=== PATIENT | female | born 1980 | race Caucasian/White ===

== ENCOUNTER 2016-09-13 09:56 | Day surgery (SDC) | payer MEDICAID ==
[~2016-09-13 09:56] MED LIST: Lactated Ringers 1,000 ML IV SCH
[2016-09-13] MEDS ORDERED: fentaNYL 100 MCG/2 ML SDV ONE (12:06)
[2016-09-13] MEDS ORDERED: Propofol 200 MG/20 ML SDV ONE ×2 (12:06→13:08)
[2016-09-13] MEDS ORDERED: Ondansetron 4 MG/2 ML SDV ONE (12:58)
[2016-09-13 14:49] VITALS: BP 101/60
--- NOTE | 2016-09-16 08:15 | OR ---
PREOPERATIVE DIAGNOSIS: Chronic diarrhea. POSTOPERATIVE DIAGNOSIS: Normal exam of terminal ilium and colon. PROCEDURE PROPOSED: Total flexible colonoscopy. PROCEDURE DONE: Total flexible colonoscopy with multiple random biopsies. INDICATION: This is a 36-year-old female bothered with what appears to be a chronic diarrhea situation. She has been having 1 to 4 loose stools per day for at least a month to 6 weeks. She has been worked up with stool studies and C. diff studies and now referred for colonoscopy. TECHNIQUE: The patient brought to the endoscopy suite, placed in left lower decubitus position. She was sedated with propofol per FRONT OFFICE SPEC. Flexible video colonoscope was then passed transanally and under visualization advanced to the cecum. I was able to intubate the terminal ilium which appeared normal. I did do some biopsies of the terminal ilium. I then brought the scope back into the colon and did multiple random biopsies throughout the ascending, transverse, descending, sigmoid, and rectal colon. There was no evidence of any colitis, polyps, diverticulosis, or any other colonic abnormality and the scope was then withdrawn. The patient tolerated the procedure well. IMPRESSION: Normal exam of terminal ileum and colon, biopsies pending. PLAN: She was recommended to take Metamucil 1 tablespoon daily with juice to help regulate her stools. I will be sending her a letter with the pathology report and may make further recommendations based on the pathology and she should follow up with her PCP as needed. SCM: 09/13/2016 13:34:04 MODL: 09/13/2016 21:23:17 /[id number]
--- NOTE | 2016-09-23 13:17 | LETTER ---
09/20/2016 RE: MARIA ISABEL RODRIGUEZ : 1980 Dear Maria Isabel: The biopsies taken from your small intestine were entirely normal. The biopsies taken from your colon were also entirely normal. This would indicate that you do not have any type of underlying bowel disease or colitis. I am hoping that things are improving for you with the Metamucil, which should help regulate your bowels. If you are still having significant diarrhea, I would recommend adding 1 Imodium pill every morning to your regimen. If that does not seem to help alleviate your problem, I would recommend you contact your family physician and then consider having a referral to a GI specialist in [place]. If you have any further questions regarding this, feel free to call. Respectfully, PRINCESS
== END 2016-09-13 14:40 | disposition home or self-care (01) ==
LOC: VM.SDS 09:56
PROVIDERS: ATTEND Surgery
DX: R19.7 Diarrhea, unspecified (principal); Z88.2 Allergy status to sulfonamides; Z91.040 Latex allergy status
CPT/HCPCS: 45380; J2704; J3010; J7120; J2405

== ENCOUNTER 2017-08-31 11:54 | Emergency (ER) | payer MEDICAID ==
[2017-08-31 12:14] VITALS: BP 130/94
[2017-08-31] MEDS ORDERED: Take Home: Codeine/Promethazine 10-6.25 MG/5 ML Syrup 5 ML, 2 Cup Pack PO ONE (12:20)
--- NOTE | 2017-08-31 12:41 | EDM.PDOC ---
ED HPI GENERAL MEDICAL PROBLEM - General Chief Complaint: General Stated Complaint: COLD Time Seen by Provider: 08/31/17 12:15 Source of Information: Reports: Patient History Limitations: Reports: No Limitations - History of Present Illness INITIAL COMMENTS - FREE TEXT/NARRATIVE: Pt. presents to ER with 4 day history of productive cough, chest congestion, laryngitis, and wheezing. Pt. states that she has a history of mild asthma and is on an albuterol inhaler as needed as well as singulair daily. Pt. states that she felt worse this AM-states that she is wheezy and her cough has become productive. She states that she is not experiencing any fever or chills. Denies any chest pain, weakness, or shortness of breath. She states that the symptoms started like a URI with sore throat, dry cough, and ear fullness and has since progressed. She states that she has not been using her inhaler because she didn't feel wheezy until today. States that she did not get her flu shot this year. Onset: Today Onset Date: 08/31/17 Onset Time: 12:41 Location: Reports: Chest Associated Symptoms: Reports: Cough, cough w sputum, Headaches. Denies: Confusion, Chest Pain, Diaphoresis, Fever/Chills, Loss of Appetite, Malaise, Nausea/Vomiting, Rash, Seizure, Shortness of Breath, Syncope, Weakness Headache Pain Score (Numeric/FACES): 7 - Related Data Allergies Allergy/AdvReac Type Severity Reaction Status Date / Time Latex, Natural Rubber Allergy Rash Verified 08/31/17 12:05 Sulfa (Sulfonamide Allergy Hives Verified 08/31/17 12:05 Antibiotics) sulfamethoxazole Allergy Hives Verified 08/31/17 12:05 Home Meds: Home Meds Albuterol [Proventil HFA] 2 puff INH Q4H PRN 09/20/15 [History] FLUoxetine HCl [Fluoxetine HCl] 80 mg PO DAILY 09/20/15 [History] Pantoprazole Sodium [Protonix] 40 mg PO DAILY 09/20/15 [History] SUMAtriptan Succinate [Imitrex] 100 mg PO ASDIRECTED PRN 09/20/15 [History] busPIRone HCl [busPIRone] 30 mg PO BID 09/20/15 [History] Cetirizine [ZyrTEC] 10 mg PO DAILY 09/10/16 [History] Montelukast [Singulair] 10 mg PO BEDTIME 09/10/16 [History] Candesartan Cilexetil 16 mg PO DAILY 08/31/17 [History] Fluticasone Propionate [Flonase] 1 dose NASBOTH DAILY 08/31/17 [History] Gabapentin [Neurontin] 300 mg PO Q6H PRN 08/31/17 [History] Ondansetron [Zofran] 8 mg PO TID PRN 08/31/17 [History] Past Medical History Other HEENT History: SEASONAL ALLERGIES Respiratory History: Reports: Asthma Gastrointestinal History: Reports: GERD Other Gastrointestinal History: diarrhea Other Musculoskeletal History: dorsal wrist ganglion Neurological History: Reports: Migraines Psychiatric History: Reports: Anxiety, Depression Other Psychiatric History: circadian rhythm sleep disorder, 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 Other Dermatologic History: gets boils at time - Past Surgical History HEENT Surgical History: Reports: Oral Surgery Musculoskeletal Surgical History: Reports: Arthroscopic Procedure Social & Family History - Tobacco Use Smoking Status *Q: Never Smoker - Recreational Drug Use Recreational Drug Use: No ED ROS GENERAL - Review of Systems Review Of Systems: See Below Constitutional: Reports: No Symptoms HEENT: Reports: Rhinitis, Sinus Problem, Throat Pain Respiratory: Reports: Cough, Sputum Cardiovascular: Reports: No Symptoms Endocrine: Reports: No Symptoms GI/Abdominal: Reports: No Symptoms : Reports: No Symptoms Musculoskeletal: Reports: No Symptoms Skin: Reports: No Symptoms Neurological: Reports: No Symptoms Psychiatric: Reports: No Symptoms Hematologic/Lymphatic: Reports: No Symptoms Immunologic: Reports: No Symptoms ED EXAM, GENERAL - Physical Exam Exam: See Below Exam Limited By: No Limitations General Appearance: Alert, WD/WN, No Apparent Distress Eye Exam: Bilateral Eye: EOMI, Normal Fundi, Normal Inspection, PERRL Ears: Normal External Exam, Normal Canal, Hearing Grossly Normal, Normal TMs Nose: Normal Inspection, Normal Mucosa, No Blood Throat/Mouth: Normal Inspection, Normal Lips, Normal Teeth, Normal Gums, Normal Oropharynx, Normal Voice, No Airway Compromise Head: Atraumatic, Normocephalic Neck: Normal Inspection, Supple, Non-Tender, Full Range of Motion Respiratory/Chest: No Respiratory Distress, Lungs Clear, Normal Breath Sounds, No Accessory Muscle Use, Chest Non-Tender Cardiovascular: Normal Peripheral Pulses, Regular Rate, Rhythm, No Edema, No Gallop, No JVD, No Murmur, No Rub GI/Abdominal: Normal Bowel Sounds, Soft, Non-Tender, No Organomegaly, No Distention, No Abnormal Bruit, No Mass (Female) Exam: Deferred Rectal (Female) Exam: Deferred Back Exam: Normal Inspection, Full Range of Motion, NT Extremities: Normal Inspection, Normal Range of Motion, Non-Tender, Normal Capillary Refill, No Pedal Edema Neurological: Alert, Oriented, CN II-XII Intact, Normal Cognition, Normal Gait, Normal Reflexes, No Motor/Sensory Deficits Psychiatric: Normal Affect, Normal Mood Skin Exam: Warm, Dry, Intact, Normal Color, No Rash Lymphatic: No Adenopathy Course - Vital Signs Last Recorded V/S: Last Vital Signs Temp 37.1 C 08/31/17 12:09 Pulse 79 08/31/17 12:09 Resp 18 08/31/17 12:09 BP 130/94 H 08/31/17 12:09 Pulse Ox 98 08/31/17 12:09 - Orders/Labs/Meds Orders: Active Orders 24 hr Category Date Time Status Chest 2V [CR] Stat Exams 08/31/17 12:19 Ordered INFLUENZA A+B AG SCREEN [RM] Stat Lab 08/31/17 12:28 Ordered Meds: Medications Discontinued Medications Generic Name Dose Route Start Last Admin Trade Name Saira PRN Reason Stop Dose Admin Promethazine HCl/Codeine 2 packet 08/31/17 12:20 Take Home: Codeine/Prometh 10-6.25 Mg, 2 Pack PO 08/31/17 12:21 ONETIME ONE - Radiology Interpretation Free Text/Narrative:: chest x-ray negative for acute pathology Departure - Departure Time of Disposition: 13:04 Disposition: Home, Self-Care 01 Condition: Good Clinical Impression: Viral bronchitis - Discharge Information Referrals: Sindy Sanches MD [Primary Care Provider] - - My Orders Last 24 Hours: My Active Orders 08/31/17 12:19 Chest 2V [CR] Stat 08/31/17 12:28 INFLUENZA A+B AG SCREEN [RM] Stat - Assessment/Plan Last 24 Hours: My Active Orders 08/31/17 12:19 Chest 2V [CR] Stat 08/31/17 12:28 INFLUENZA A+B AG SCREEN [RM] Stat
[2017-08-31] MEDS ORDERED: Take Home: Codeine/Promethazine 10-6.25 MG/5 ML Syrup 5 ML, 2 Cup Pack ONE (13:06)
== END 2017-08-31 13:20 | disposition home or self-care (01) ==
LOC: VM.ED 11:54
DX: J20.8 Acute bronchitis due to other specified organisms (principal); B97.89 Other viral agents as the cause of diseases classified elsewhere; Z91.040 Latex allergy status; Z88.2 Allergy status to sulfonamides; Z79.899 Other long term (current) drug therapy
CPT/HCPCS: 71046; 87804; 99283; A9270-GY

== ENCOUNTER 2019-02-07 12:30 | Emergency (ER) | payer MEDICAID ==
[2019-02-07] MEDS ORDERED: Take Home: Doxycycline 100 MG Tab, 4 Tab Pack PO ONE (12:51)
[2019-02-07] MEDS ORDERED: Take Home: predniSONE 20 MG, 2 Tab Pack PO ONE (12:51)
[2019-02-07 13:31] VITALS: BP 120/68; PULSE 76
--- NOTE | 2019-02-07 13:44 | EDM.PDOC ---
ED HPI GENERAL MEDICAL PROBLEM - General Chief Complaint: Respiratory Problem Time Seen by Provider: 02/07/19 12:40 Source of Information: Reports: Patient History Limitations: Reports: No Limitations - History of Present Illness INITIAL COMMENTS - FREE TEXT/NARRATIVE: Pt. presents to ER with complaints of cough and chest congestion for 2 1/2 weeks. Pt. was seen in clinic last week (approx. 7 days ago, 10 days into the illness) and was diagnosed with a viral illness. Pt. states that her symptoms persist. Denies any fever or chills. She states that she is expectorating yellowish sputum. Denies any shortness of breath. She states that he does have some respirophasic chest discomfort when coughing. Denies any nausea, vomiting, or diarrhea. No melena, hematochezia, or hematemesis. She does complain of some sinus congestion. No sore throat. Pt. states that she has a history of asthma and uses albuterol inhaler as needed. Associated Symptoms: Reports: Cough - Related Data Allergies Allergy/AdvReac Type Severity Reaction Status Date / Time Latex, Natural Rubber Allergy Rash Verified 02/07/19 13:25 Sulfa (Sulfonamide Allergy Hives Verified 02/07/19 13:25 Antibiotics) sulfamethoxazole Allergy Hives Verified 02/07/19 13:25 Home Meds: Home Meds Albuterol [Proventil HFA] 2 puff INH Q4H PRN 09/20/15 [History] FLUoxetine HCl [Fluoxetine HCl] 80 mg PO DAILY 09/20/15 [History] Pantoprazole Sodium [Protonix] 40 mg PO DAILY 09/20/15 [History] SUMAtriptan Succinate [Imitrex] 100 mg PO ASDIRECTED PRN 09/20/15 [History] busPIRone HCl [busPIRone] 30 mg PO BID 09/20/15 [History] Cetirizine [ZyrTEC] 10 mg PO DAILY 09/10/16 [History] Montelukast [Singulair] 10 mg PO BEDTIME 09/10/16 [History] Candesartan Cilexetil 16 mg PO DAILY 08/31/17 [History] Fluticasone Propionate [Flonase] 1 dose NASBOTH DAILY 08/31/17 [History] Gabapentin [Neurontin] 300 mg PO Q6H PRN 08/31/17 [History] Ondansetron [Zofran] 8 mg PO TID PRN 08/31/17 [History] Past Medical History Other HEENT History: SEASONAL ALLERGIES Respiratory History: Reports: Asthma Gastrointestinal History: Reports: GERD Other Gastrointestinal History: diarrhea Other Musculoskeletal History: dorsal wrist ganglion Neurological History: Reports: Migraines Psychiatric History: Reports: Anxiety, Depression Other Psychiatric History: circadian rhythm sleep disorder, 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 Other Dermatologic History: gets boils at time - Past Surgical History HEENT Surgical History: Reports: Oral Surgery Musculoskeletal Surgical History: Reports: Arthroscopic Procedure ED ROS GENERAL - Review of Systems Review Of Systems: See Below Constitutional: Denies: Fever, Chills HEENT: Reports: Rhinitis, Sinus Problem Respiratory: Reports: Pleuritic Chest Pain, Cough Cardiovascular: Reports: No Symptoms Endocrine: Reports: No Symptoms GI/Abdominal: Reports: No Symptoms : Reports: No Symptoms Musculoskeletal: Reports: No Symptoms Skin: Reports: No Symptoms Neurological: Reports: No Symptoms Psychiatric: Reports: No Symptoms Hematologic/Lymphatic: Reports: No Symptoms Immunologic: Reports: No Symptoms ED EXAM, GENERAL - Physical Exam Exam: See Below Exam Limited By: No Limitations General Appearance: Alert, WD/WN, No Apparent Distress Respiratory/Chest: No Respiratory Distress, No Accessory Muscle Use, Chest Non- Tender, Rhonchi Cardiovascular: Normal Peripheral Pulses, Regular Rate, Rhythm, No Edema, No Murmur, No Rub GI/Abdominal: Normal Bowel Sounds, Soft, Non-Tender, No Organomegaly, No Distention, No Mass (Female) Exam: Deferred Rectal (Female) Exam: Normal Exam, Normal Rectal Tone Back Exam: Normal Inspection, Full Range of Motion Extremities: Normal Inspection, Normal Range of Motion Neurological: Alert, Oriented, CN II-XII Intact, Normal Cognition, Normal Gait, Normal Reflexes, No Motor/Sensory Deficits Psychiatric: Normal Affect, Normal Mood Skin Exam: Warm, Dry, Intact, Normal Color, No Rash Lymphatic: No Adenopathy Course - Vital Signs Last Recorded V/S: Last Vital Signs Temp 36.8 C 02/07/19 12:40 Pulse 76 02/07/19 12:40 Resp 18 02/07/19 12:40 BP 120/68 02/07/19 12:40 Pulse Ox 99 02/07/19 12:40 - Orders/Labs/Meds Meds: Medications Discontinued Medications Generic Name Dose Route Start Last Admin Trade Name Saira PRN Reason Stop Dose Admin Doxycycline Monohydrate 1 packet 02/07/19 12:51 02/07/19 13:07 Take Home: Doxycycline 100 Mg, 4 Tab Pack PO 02/07/19 12:52 1 packet ONETIME ONE Administration Prednisone 1 packet 02/07/19 12:51 02/07/19 13:07 Take Home: Prednisone 20 Mg, 2 Tab Pack PO 02/07/19 12:52 1 packet ONETIME ONE Administration Departure - Departure Time of Disposition: 13:00 Disposition: Home, Self-Care 01 Clinical Impression: Bronchitis - Discharge Information Instructions: Doxycycline tablets or capsules, Prednisone tablets, Acute Bronchitis, Adult, Probiotics Additional Instructions: Doxycycline 100mg twice daily Prednisone 20mg 2 tabs daily for 6 days Use your albuterol inhaler every 4-6 hours as needed for cough/shortness of breath. Recheck in clinic in 10-14 days - Assessment/Plan Plan: Doxycycline 100mg twice daily Prednisone 20mg 2 tabs daily for 6 days Use your albuterol inhaler every 4-6 hours as needed for cough/shortness of breath. Recheck in clinic in 10-14 days
== END 2019-02-07 13:10 | disposition home or self-care (01) ==
LOC: VM.ED 12:30
DX: J40 Bronchitis, not specified as acute or chronic (principal); K21.9 Gastro-esophageal reflux disease without esophagitis; F41.9 Anxiety disorder, unspecified; F32.9 Major depressive disorder, single episode, unspecified; Z88.2 Allergy status to sulfonamides; Z91.040 Latex allergy status; Z79.899 Other long term (current) drug therapy
CPT/HCPCS: 99283; A9270

== ENCOUNTER 2020-03-18 10:50 | Emergency (ER) | payer MEDICAID ==
--- NOTE | 2020-03-18 11:19 | EDM.PDOC ---
ED HPI GENERAL MEDICAL PROBLEM - General Chief Complaint: Respiratory Problem Stated Complaint: cough, sputum production Time Seen by Provider: 03/18/20 10:58 Source of Information: Reports: Patient History Limitations: Reports: No Limitations - History of Present Illness INITIAL COMMENTS - FREE TEXT/NARRATIVE: Patient comes into the emergency department with complaints of cough, congestion, increased sputum production. Patient states that she has been having symptoms now for approximately 2 weeks. She states that she also does have a longstanding history of asthma with a rescue inhaler when she does get upper respiratory infections. She is states that she has lost her inhaler but feels that she would have benefited from using her inhaler at home. She denies any active shortness of breath, chest pain, dizziness, lightheadedness, fever, fatigue, nausea, vomiting, GI upset, or peripheral edema. Patient states that she has noticed when lying down that the symptoms do progressively get worse. She will progress into significant mall coughing episodes that do take her breath away. She also states that she is producing a moderate amount of sputum at times that is characterized as yellow in color. Patient states that her symptoms do get better if she is up walking around or if she sitting upright. Patient denies any issues with her ADLs or decrease in appetite. Patient states she is been relatively healthy and has been following the CDC and [facility] health guidelines regarding the Covid 19 pandemic. Patient does not feel that she has COVID-19 currently. She also denies having any loss of taste or smell. Onset: Gradual Duration: Constant Location: Reports: Chest Quality: Reports: Other Severity: Mild Improves with: Reports: Other Worsens with: Reports: Other (laying flat), Movement Associated Symptoms: Reports: Cough, cough w sputum. Denies: Diaphoresis, Fever/Chills, Headaches, Loss of Appetite, Malaise, Nausea/Vomiting, Rash, Seizure, Shortness of Breath, Syncope - Related Data Allergies Allergy/AdvReac Type Severity Reaction Status Date / Time Latex, Natural Rubber Allergy Rash Verified 02/07/19 13:25 Sulfa (Sulfonamide Allergy Hives Verified 02/07/19 13:25 Antibiotics) sulfamethoxazole Allergy Hives Verified 02/07/19 13:25 Home Meds: Home Meds Albuterol [Proventil HFA] 2 puff INH Q4H PRN 09/20/15 [History] Pantoprazole Sodium [Protonix] 40 mg PO DAILY 09/20/15 [History] SUMAtriptan succinate [Imitrex] 100 mg PO ASDIRECTED PRN 09/20/15 [History] busPIRone HCl [busPIRone] 30 mg PO BID 09/20/15 [History] Cetirizine [ZyrTEC] 10 mg PO DAILY 09/10/16 [History] Montelukast [Singulair] 10 mg PO BEDTIME 09/10/16 [History] Fluticasone Propionate [Flonase] 1 dose NASBOTH DAILY 08/31/17 [History] FLUoxetine HCl [Fluoxetine HCl] 40 mg DAILY 02/07/19 [History] Galcanezumab-Gnlm [Emgality Pen] 120 mg ASDIRECTED 02/07/19 [History] Phentermine HCl 18.5 mg DAILY 02/07/19 [History] Azithromycin [Zithromax] 250 mg PO DAILY #6 tablet 03/18/20 [Rx] predniSONE [Prednisone] 20 mg PO DAILY #5 tablet 03/18/20 [Rx] Past Medical History Other HEENT History: SEASONAL ALLERGIES Respiratory History: Reports: Asthma Gastrointestinal History: Reports: GERD Other Gastrointestinal History: diarrhea Other Musculoskeletal History: dorsal wrist ganglion Neurological History: Reports: Migraines Psychiatric History: Reports: Anxiety, Depression Other Psychiatric History: circadian rhythm sleep disorder, shift work type (BETTER AT THIS TIME). insomnia Other Dermatologic History: gets boils at time - Past Surgical History HEENT Surgical History: Reports: Oral Surgery Musculoskeletal Surgical History: Reports: Arthroscopic Procedure ED ROS GENERAL - Review of Systems Review Of Systems: Comprehensive ROS is negative, except as noted in HPI. Constitutional: Reports: No Symptoms HEENT: Reports: No Symptoms Cardiovascular: Reports: No Symptoms Endocrine: Reports: No Symptoms GI/Abdominal: Reports: No Symptoms : Reports: No Symptoms Musculoskeletal: Reports: No Symptoms Skin: Reports: No Symptoms Neurological: Reports: No Symptoms Psychiatric: Reports: No Symptoms Hematologic/Lymphatic: Reports: No Symptoms Immunologic: Reports: No Symptoms ED EXAM, GENERAL - Physical Exam Exam: See Below Exam Limited By: No Limitations General Appearance: Alert, WD/WN, No Apparent Distress Ears: Normal External Exam, Normal Canal, Hearing Grossly Normal, Normal TMs Ear Exam: Bilateral Ear: Auricle Normal, Canal Normal, TM normal Nose: Normal Inspection, Normal Mucosa, No Blood Throat/Mouth: Other (tonsil 3+, redness and stones noted ) Head: Atraumatic, Normocephalic Neck: Normal Inspection, Supple, Non-Tender, Full Range of Motion Respiratory/Chest: No Respiratory Distress, Lungs Clear, Normal Breath Sounds, No Accessory Muscle Use, Chest Non-Tender Cardiovascular: Normal Peripheral Pulses, Regular Rate, Rhythm, No Edema, No Murmur, No Rub Back Exam: Normal Inspection, Full Range of Motion Extremities: Normal Inspection, Normal Range of Motion, Non-Tender, No Pedal Edema, Normal Capillary Refill Neurological: Alert, Oriented, CN II-XII Intact, Normal Cognition, Normal Gait Psychiatric: Normal Affect, Normal Mood Skin Exam: Warm, Dry, Intact, Normal Color Departure - Departure Time of Disposition: 11:15 Disposition: Home, Self-Care 01 Condition: Good Clinical Impression: Bronchitis - Discharge Information *PRESCRIPTION DRUG MONITORING PROGRAM REVIEWED*: Not Applicable *COPY OF PRESCRIPTION DRUG MONITORING REPORT IN PATIENT NAOMIE: Not Applicable Prescriptions: predniSONE [Prednisone] 20 mg PO DAILY #5 tablet Azithromycin [Zithromax] 250 mg PO DAILY #6 tablet Instructions: Acute Bronchitis, Adult, Azithromycin tablets, Prednisone tablets, Probiotics Forms: ED Department Discharge Additional Instructions: 1. rest 2. increase your water intake 3. Take all antibiotics as prescribed even if feeling better 4. Take a probiotic while on antibiotics to help promote healthy GI motility 5. Activity and diet as tolerated 6. Can use Ibuprofen and tylenol for any fever or discomfort 7. Follow up with your PCP or return if symptoms progress or worsen 8. Education provided to you regarding your illness, probiotics, antibiotic prescribed 9. Call with any questions or concerns - Assessment/Plan Assessment:: 1. acute bronchitis Plan: 1. Azithromycin script sent with the patient 2. Prednisone script sent with the patient 3. Patient and nursing staff was updated regarding the plan of care 4. Education provided the patient regarding activity, diet, rest, [id number] medication modalities, and follow-up care was provided 5. Patient and family are agreeable to the above plan of care 6. All questions and concerns were addressed with the patient and family prior to discharge
[2020-03-18 11:23] VITALS: BP 141/82; PULSE 82
== END 2020-03-18 11:20 | disposition home or self-care (01) ==
LOC: VM.ED 10:50
DX: J40 Bronchitis, not specified as acute or chronic (principal); J45.909 Unspecified asthma, uncomplicated; K21.9 Gastro-esophageal reflux disease without esophagitis; F41.9 Anxiety disorder, unspecified; F32.9 Major depressive disorder, single episode, unspecified; Z91.040 Latex allergy status; Z88.2 Allergy status to sulfonamides; Z79.899 Other long term (current) drug therapy
CPT/HCPCS: 99283